=== PATIENT | male | born 1960 | race Two or more races ===

== ENCOUNTER 2025-01-31 12:57 | Emergency (ER) | payer MEDICAID, OTHER ==
[~2025-01-31] VITALS: Ht 177.8 cm; Wt 59.0 kg
[~2025-01-31 12:57] MED LIST: CELEXA; ZOCOR; [UNRECOGNIZED DRUG - OTHER]
[2025-01-31 12:58] VITALS: O2SAT 100
[2025-01-31] MEDS: SODIUM CHLORIDE 0.9% 1,000 ML IV ONE (13:38)
[2025-01-31 14:00] LABS: BASOPHILS % 0.3 % (0.0-2.0); EOSINOPHILS % 0.6 % (0.0-5.0); HEMATOCRIT. 44.0 % (42.0-52.0); HEMOGLOBIN. 14.7 g/dL (14.0-18.0); LYMPHOCYTES % 17.7 % (20.0-50.0); MEAN PLATELET VOLUME 8.2 fl (7.4-10.4); MONOCYTES % 5.2 % (2.0-8.0); NEUTROPHILS % 76.2 % (40.0-76.0); PLATELET 234 x1000/uL (130-400); RED BLOOD CELL COUNT 5.01 mill/uL (4.7-6.1); RED CELL DISTRIBUTION WIDTH 15.1 % (11.6-14.6)
[2025-01-31 14:14] LABS: CREATININE 0.8 mg/dL (0.6-1.3); UREA NITROGEN BLOOD 25 mg/dL (9-23)
[2025-01-31 14:15] LABS: ETHANOL BLOOD 235 mg/dL (<10)
[2025-01-31 14:16] LABS: TROPONIN I HIGH SENSITIVITY 17 ng/L (3.0-53)
[2025-01-31] MEDS: ACETAMINOPHEN 500MG TABLET PO ONE (16:46)
[2025-01-31 18:13] LABS: TROPONIN I HIGH SENSITIVITY 19 ng/L (3.0-53)
[2025-01-31 18:50] VITALS: BP 169/91; PULSE 97; RESP 22; TEMP 36.7; O2SAT 97
== END 2025-01-31 19:00 | disposition home or self-care (01) ==
LOC: ER 12:57
DX: F10.129 Alcohol abuse with intoxication, unspecified (principal); I10 Essential (primary) hypertension; E78.00 Pure hypercholesterolemia, unspecified; Y90.7 Blood alcohol level of 200-239 mg/100 ml
CPT/HCPCS: 80048; 80320; 85025; 84484; 36415; 96360; 99284; J7030; Z7610; A4606; G0480